=== PATIENT | male | born 1990 | race African-American/Black ===

== ENCOUNTER 2019-03-25 09:10 | Emergency (ER) | payer BC ==
[~2019-03-25] VITALS: Ht 175.3 cm; Wt 70.3 kg
[2019-03-25] MEDS ORDERED: DEXAMETHASONE 4 MG TABLET PO STA (09:32)
[2019-03-25 09:39] VITALS: BP 122/63
[2019-03-25] MEDS ORDERED: LIDOCAINE 2% VISCOUS 15 ML SOLUTION. SWSW ONE (09:45)
[2019-03-25] MEDS ORDERED: AMOX500C PO (10:01)
--- NOTE | 2019-03-25 10:02 | PHYS DOC ---
Past Medical History Past Medical History: No Pertinent History Past Surgical History: Other Additional Past Surgical Histo: UMBILICAL HERNIA Alcohol Use: Occasionally Drug Use: None Adult General Chief Complaint Chief Complaint: SORE THROAT HPI HPI Patient is a 28 year old male who presents with sore throat this been ongoing since Friday. The patient states the pain is worse when he tries to eat. The patient also reports that he body aches on Friday but has not had any since. Has any associated symptoms such as runny nose, cough, congestion. Fourth that his pain is 9 out of 10 in severity and sharp. Review of Systems Review of Systems Constitutional: Denies fever or chills [] Eyes: Denies change in visual acuity, redness, or eye pain [] HENT: Reports sore throat. Respiratory: Denies cough or shortness of breath [] Cardiovascular: No additional information not addressed in HPI [] GI: Denies abdominal pain, nausea, vomiting, bloody stools or diarrhea [] : Denies dysuria or hematuria [] Musculoskeletal: Denies back pain or joint pain [] Integument: Denies rash or skin lesions [] Neurologic: Denies headache, focal weakness or sensory changes [] Endocrine: Denies polyuria or polydipsia [] Complete systems were reviewed and found to be within normal limits, except as documented in this note. Current Medications Current Medications Current Medications Medications (Trade) Dose Ordered Sig/Ari Start Time Stop Time Status Last Admin Dose Admin Dexamethasone (Decadron) 10 mg 1X STAT 03/25/19 09:32 03/25/19 09:45 DC Lidocaine HCl (Viscous Lidocaine) 15 ml 1X ONCE 03/25/19 09:45 03/25/19 09:46 DC Allergies Allergies Allergies Coded Allergies Type Severity Reaction Last Updated Verified No Known Drug Allergies 03/25/19 No Physical Exam Physical Exam Constitutional: Well developed, well nourished, no acute distress, non-toxic appearance. [] HENT: Normocephalic, atraumatic, bilateral external ears normal, oropharynx moist, tonsils are 2+/4 erythema with cavitations. There are also ulcers on roof of mouth, no oral exudates, nose normal. [] Eyes: PERRLA, EOMI, conjunctiva normal, no discharge. [] Neck: Normal range of motion, no tenderness, supple, no stridor. [] Cardiovascular:Heart rate regular rhythm, no murmur [] Lungs & Thorax: Bilateral breath sounds clear to auscultation [] Skin: Warm, dry, no erythema, no rash. [] Neurologic: Alert and oriented X 3, normal motor function, normal sensory function, no focal deficits noted. [] Psychologic: Affect normal, judgement normal, mood normal. [] Current Patient Data Vital Signs Vital Signs Date Time Temp Pulse Resp B/P (MAP) Pulse Ox O2 Delivery O2 Flow Rate FiO2 03/25/19 09:39 98.7 78 18 122/63 (82) 98 Room Air 98.7 EKG EKG [] Radiology/Procedures Radiology/Procedures [] Course & Med Decision Making Course & Med Decision Making Pertinent Labs and Imaging studies reviewed. (See chart for details) Will get strep test and give Decadron and Viscious lidocaine. Discussed with patient that the ulcers on the roof of the mouth does not look like the typical strep presentation. Discussed that I am concerned about an HSV outbreak. Discussed that he needs to follow up with primary care for further testing. Patient strep is positive. Will treat for strep. Will place on antibiotics. Dragon Disclaimer Dragon Disclaimer This electronic medical record was generated, in whole or in part, using a voice recognition dictation system. Departure Departure Impression: Primary Impression: Strep tonsillitis Disposition: 01 HOME, SELF-CARE Condition: STABLE Referrals: NO PCP (PCP) Patient Instructions: Strep Throat Additional Instructions: Thank you for visiting [facility]. We appreciate you trusting us with your care. If any additional problems come up don't hesitate to return to visit us. Please follow up with your primary care provider so they can plan additional care if needed and know about the problem that you had. If symptoms worsen come back to the Emergency Department. Any concerning symptoms that start such as chest pain, shortness of air, weakness or numbness on one side of the body, running high fevers or any other concerning symptoms return to the ER. You have been prescribed an antibiotic today to help fight your infection. Please take all of the antibiotic as directed. If after 48 hours the infection is not improving, please return for more care. If the infection worsens, return to ER for additional care. Scripts Amoxicillin (AMOXICILLIN) 500 Mg Capsule 1 CAP PO BID for 10 Days, #20 CAP Prov: PEPITO IQBAL APRN 03/25/19 PEPITO IQBAL APRN Mar 25, 2019 10:01
== END 2019-03-25 10:27 | disposition home or self-care (01) ==
LOC: ER 09:10
DX: J03.00 Acute streptococcal tonsillitis, unspecified (principal); K13.79 Other lesions of oral mucosa; L53.8 Other specified erythematous conditions; Z98.890 Other specified postprocedural states
CPT/HCPCS: 87880; 99283; J8540